=== PATIENT | female | born 1980 | race Asian ===

== ENCOUNTER 2023-01-05 04:02 | Day surgery (SDC) | payer OTHER ==
[2023-01-04 15:47] VITALS: BMI 27.7
[2023-01-05] MEDS ORDERED: IBUPROFEN 400 MG TABLET (FP) PO PRN (07:42)
[2023-01-05] MEDS ORDERED: oxyCODONE HCL 5 MG TABLET PO PRN (07:42)
[2023-01-05] MEDS ORDERED: ACETAMINOPHEN 325 MG TABLET (FP) PO PRN (07:42)
[2023-01-05] MEDS ORDERED: MIDAZOLAM HCL 2 MG/2 ML SINGLE DOSE VIAL ONE (13:21)
[2023-01-05] MEDS ORDERED: DEXAMETHASONE SOD PHOSPHATE 4 MG/1 ML VIAL ONE (13:21)
[2023-01-05] MEDS ORDERED: PROPOFOL 20 ML ONE (13:21)
[2023-01-05] MEDS ORDERED: ONDANSETRON 4 MG/2 ML VIAL ONE (13:21)
[2023-01-05] MEDS ORDERED: ceFAZolin SODIUM 1 GM VIAL IVPB ONE (13:40)
[2023-01-05] MEDS ORDERED: ONDANSETRON 4 MG/2 ML VIAL IVPUSH PRN (13:54)
[2023-01-05] MEDS ORDERED: LACTATED RINGERS SOLUTION 1,000 ML IV SCH (14:00)
[2023-01-05] MEDS ORDERED: ACETAMINOPHEN INJECTION 100 ML IVPB ONE (14:15)
[2023-01-05] MEDS ORDERED: ACETAMINOPHEN 1000 MG/100 ML BAG IVPB ONE (14:18)
[2023-01-05 15:46] VITALS: RESP 16
[2023-01-05 16:10] VITALS: BP 116/58; PULSE 84; TEMP 97.4
== END 2023-01-05 16:21 | disposition home or self-care (01) ==
LOC: JASU-SURG 04:02
PROVIDERS: ATTEND Obstetrics & Gynecology
PROC: 10D17ZZ Extraction of Products of Conception, Retained, Via Natural or Artificial Opening (ICD-10-PCS; principal; 2023-01-05 12:30)
DX: O02.1 Missed abortion (principal)
CPT/HCPCS: 88305-TC; 94760